=== PATIENT | male | born 1980 | race Caucasian/White ===

== ENCOUNTER 2023-04-11 19:11 | Inpatient (IN) | payer OTHER, MEDICAID ==
[~2023-04-11] VITALS: Ht 172.7 cm; Wt 76.6 kg
[2023-04-11 21:31] LABS: BASOPHILS % (AUTO) 0.7 % (0.0-2.0); EOSINOPHILS % (AUTO) 0.6 % (1.0-6.0); HEMATOCRIT 49.1 % (41-53); HEMOGLOBIN 16.2 g/dL (13.5-17.5); LYMPHOCYTES # (AUTO) 2.4 K/uL (1.0-4.8); LYMPHOCYTES % (AUTO) 19.7 % (22.0-44.0); MEAN CORPUSCULAR HEMOGLOBIN 28.2 pg (26.0-34.0); MEAN CORPUSCULAR VOLUME 86 fL (80-100); MONOCYTES # (AUTO) 0.9 K/uL (0.1-1.0); MONOCYTES % (AUTO) 7.7 % (2.0-9.0); NEUTROPHILS # (AUTO) 8.7 K/uL (1.8-7.7); NEUTROPHILS % (AUTO) 71.3 % (40.0-70.0); PLATELET COUNT (AUTO) 281 K/uL (150-450); RED BLOOD CELL COUNT(AUTO) 5.74 MIL/uL (4.50-5.90); RED CELL DISTRIBUTION WIDTH 13.1 % (11.5-14.5); WHITE BLOOD COUNT (AUTO) 12.2 K/uL (4.5-11.0)
[2023-04-11 21:37] LABS: ANION GAP 18 mmol/L (8-16); CALCIUM, TOTAL 10.6 mg/dL (8.8-10.5); CARBON DIOXIDE 22 mmol/L (22-29); CHLORIDE 99 mmol/L (98-107); CREATININE 1.58 mg/dL (0.60-1.30); GLOMERULAR FILTR. RATE CALC 48 mL/min (>60); GLUCOSE,RANDOM 170 mg/dL (70-110); POTASSIUM 3.1 mmol/L (3.5-5.1); SODIUM SERUM 139 mmol/L (136-145); UREA NITROGEN, BLOOD 25 mg/dL (7-18)
[2023-04-11 21:43] LABS: ALANINE AMINOTRANSFERASE 36 U/L (12-78); ALBUMIN 4.5 g/dL (3.4-5.0); ALKALINE PHOSPHATASE 103 U/L (46-116); ASPARTATE AMINOTRANSFERASE 20 U/L (15-37); BILIRUBIN,TOTAL 0.7 mg/dL (0.1-1.0); TOTAL PROTEIN, SERUM 8.3 g/dL (6.4-8.2)
[2023-04-11 21:48] LABS: ALCOHOL, BLOOD (SERUM) < 3 mg/dL (0-10)
[2023-04-11] MEDS ORDERED: ASPI-1451 PO (23:01)
[2023-04-11] MEDS ORDERED: ATOR10TA69 PO (23:01)
[2023-04-11] MEDS ORDERED: SERT-438 PO (23:01)
[2023-04-11] MEDS ORDERED: PRED5TAB2 PO (23:01)
[2023-04-11] MEDS ORDERED: CALC0.253 PO (23:01)
[2023-04-11] MEDS ORDERED: NIFE-56 PO (23:01)
[2023-04-11] MEDS ORDERED: HYDR-4527 PO (23:01)
[2023-04-11] MEDS ORDERED: METO-408 PO (23:01)
[2023-04-11] MEDS ORDERED: TACR1CAP12 PO (23:09)
[2023-04-12 01:35] LABS: PH,URINE DRUG SCREEN 5.5 (5.0-8.0)
[2023-04-12 01:37] LABS: ALCOHOL, URINE DRUG SCREEN NEGATIVE (NEGATIVE); AMPHET/METH SCREEN,URINE NEGATIVE (NEGATIVE); BARBITURATE SCREEN, URINE NEGATIVE (NEGATIVE); BENZODIAZEPINES SCREEN,URINE NEGATIVE (NEGATIVE); CANNABINOID SCREEN,URINE POSITIVE (NEGATIVE); COCAINE SCREEN,URINE NEGATIVE (NEGATIVE); METHADONE SCREEN, URINE NEGATIVE (NEGATIVE); OPIATE SCREEN,URINE NEGATIVE (NEGATIVE); PHENCYCLIDINE SCREEN,URINE NEGATIVE (NEGATIVE)
[2023-04-12] MEDS: POTASSIUM CHLORIDE 20 MEQ ER TABLET PO ONE (01:43)
[2023-04-12] MEDS ORDERED: HALOPERIDOL 5 MG TABLET PO PRN ×2 (02:00→06:45)
[2023-04-12] MEDS ORDERED: ZOLPIDEM TARTRATE 10 MG TABLET PO PRN ×2 (02:00→06:45)
[2023-04-12] MEDS ORDERED: LORazepam 2 MG TABLET PO PRN (02:00)
[2023-04-12 02:49] LABS: COVID AG,FIA SOURCE NPH
[2023-04-12 03:00] LABS: SARS-COV2 (COVID) ANTIGEN,FIA Negative (Negative)
[2023-04-12 11:36] LABS: GLUCOMETER DEV NAME(LOC) ERT.5; GLUCOSE,POINT OF CARE 157 MG/DL (70-110)
[2023-04-12] MEDS ORDERED: NIFEdipine 10 MG CAPSULE PO ONE (13:30)
[2023-04-12] MEDS: METOPROLOL TARTRATE 25 MG TABLET PO ONE (14:21)
[2023-04-12] MEDS: ATORVASTATIN CALCIUM 10 MG TABLET PO ONE (14:21)
[2023-04-12] MEDS: HydrOXYzine HCL 25 MG TABLET PO ONE (14:21)
[2023-04-12] MEDS: PredniSONE 10 MG TABLET PO ONE (14:21)
[2023-04-12] MEDS: NIFEdipine 60 MG ER TABLET PO ONE (14:22)
[2023-04-12] MEDS: TACROLIMUS 1 MG CAPSULE PO ONE (14:22)
[2023-04-13 01:43] LABS: ANION GAP 10 mmol/L (8-16); CALCIUM, TOTAL 9.8 mg/dL (8.8-10.5); CARBON DIOXIDE 26 mmol/L (22-29); CHLORIDE 102 mmol/L (98-107); CREATININE 1.17 mg/dL (0.60-1.30); GLOMERULAR FILTR. RATE CALC > 60 mL/min (>60); GLUCOSE,RANDOM 244 mg/dL (70-110); POTASSIUM 3.7 mmol/L (3.5-5.1); SODIUM SERUM 138 mmol/L (136-145); UREA NITROGEN, BLOOD 22 mg/dL (7-18)
[2023-04-13 04:37] VITALS: BP 132/75; PULSE 88; RESP 18; TEMP 96.6; O2SAT 99
[2023-04-13] MEDS: LORazepam 2 MG TABLET PO PRN (07:56)
[2023-04-13 08:29] VITALS: BP 104/64; PULSE 73; RESP 18; TEMP 98.3; O2SAT 97
[2023-04-13] MEDS: METOPROLOL SUCCINATE 25 MG ER TABLET PO SCH (09:14)
[2023-04-13] MEDS: TACROLIMUS 1 MG CAPSULE PO SCH (09:15)
[2023-04-13] MEDS: CALCITRIOL 0.25 MCG CAPSULE PO SCH (09:15)
[2023-04-13] MEDS: PredniSONE 5 MG TABLET PO SCH (09:15)
[2023-04-13] MEDS: NIFEdipine 60 MG ER TABLET PO SCH (09:15)
[2023-04-13] MEDS: SERTRALINE HCL 50 MG TABLET PO SCH (12:29)
[2023-04-13] MEDS: HydrOXYzine HCL 25 MG TABLET PO SCH (16:46)
[2023-04-13] MEDS ORDERED: GLUCAGON,HUMAN RECOMBINANT 1 MG VIAL IM PRN (19:45)
[2023-04-13] MEDS ORDERED: INSULIN LISPRO 100 UNITS/ML SQ PRN (19:45)
[2023-04-13] MEDS ORDERED: DEXTROSE 50%-WATER 25 GM/50 ML SYRINGE IVP PRN (19:45)
[2023-04-13 20:22] VITALS: BP 114/62; PULSE 77; RESP 18; TEMP 98; O2SAT 98
[2023-04-13 20:40] LABS: GLUCOMETER DEV NAME(LOC) 3EX.2; GLUCOSE,POINT OF CARE 273 MG/DL (70-110)
[2023-04-13] MEDS: INSULIN LISPRO 100 UNITS/ML SQ PRN (21:31)
[2023-04-14 06:41] LABS: GLUCOMETER DEV NAME(LOC) 3EX.2; GLUCOSE,POINT OF CARE 137 MG/DL (70-110)
[2023-04-14 08:03] VITALS: BP 122/75; PULSE 80; RESP 18; TEMP 97.8; O2SAT 96
[2023-04-14] MEDS: ATORVASTATIN CALCIUM 10 MG TABLET PO SCH (08:13)
[2023-04-14] MEDS: METOPROLOL SUCCINATE 25 MG ER TABLET PO SCH (08:13)
[2023-04-14] MEDS: PredniSONE 5 MG TABLET PO SCH (08:13)
[2023-04-14] MEDS: CALCITRIOL 0.25 MCG CAPSULE PO SCH (08:14)
[2023-04-14] MEDS: NIFEdipine 60 MG ER TABLET PO SCH (08:15)
[2023-04-14 11:31] LABS: GLUCOMETER DEV NAME(LOC) 3EX.2; GLUCOSE,POINT OF CARE 270 MG/DL (70-110)
[2023-04-14 17:11] LABS: GLUCOMETER DEV NAME(LOC) 3EX.2; GLUCOSE,POINT OF CARE 284 MG/DL (70-110)
[2023-04-14 20:21] LABS: GLUCOMETER DEV NAME(LOC) 3EX.2; GLUCOSE,POINT OF CARE 143 MG/DL (70-110)
[2023-04-14 21:33] VITALS: BP 130/73; PULSE 94; RESP 18; TEMP 97.3; O2SAT 97
[2023-04-15 06:41] LABS: GLUCOMETER DEV NAME(LOC) 3EX.2; GLUCOSE,POINT OF CARE 185 MG/DL (70-110)
[2023-04-15] MEDS ORDERED: ASPI-1451 PO (08:39)
[2023-04-15] MEDS ORDERED: SERT-439 PO (08:39)
[2023-04-15] MEDS ORDERED: CALC0.2521 PO (08:39)
[2023-04-15] MEDS ORDERED: METO25XL PO (08:39)
[2023-04-15] MEDS ORDERED: PRED-549 PO (08:39)
[2023-04-15] MEDS ORDERED: TACR1CAP12 PO (08:39)
[2023-04-15] MEDS ORDERED: NIFE-129 PO (08:39)
[2023-04-15] MEDS ORDERED: ATOR10TA69 PO (08:39)
[2023-04-15] MEDS ORDERED: HYDR-4527 PO (08:39)
[2023-04-15 09:55] VITALS: BP 122/71; PULSE 84; RESP 18; TEMP 96.4; O2SAT 97
[2023-04-15 12:06] LABS: GLUCOMETER DEV NAME(LOC) 3EX.2; GLUCOSE,POINT OF CARE 215 MG/DL (70-110)
== END 2023-04-15 18:21 | disposition home or self-care (01) | DRG 885 ==
LOC: EMS 19:12 → 3EC 04-13 01:58
PROVIDERS: ADMIT Psychiatry & Neurology Psychiatry; ATTEND Psychiatry & Neurology Psychiatry
DX: F33.2 Major depressive disorder, recurrent severe without psychotic features (principal); E11.65 Type 2 diabetes mellitus with hyperglycemia; Z94.0 Kidney transplant status; R45.851 Suicidal ideations; F43.12 Post-traumatic stress disorder, chronic; I10 Essential (primary) hypertension; G47.30 Sleep apnea, unspecified; Z20.822 Contact with and (suspected) exposure to COVID-19; Z88.6 Allergy status to analgesic agent; Z79.899 Other long term (current) drug therapy; F41.9 Anxiety disorder, unspecified; E78.5 Hyperlipidemia, unspecified
CPT/HCPCS: 80048; 80053; 80307; 82962; 83036; 85025; 87420; 99285; G0480; J7507